=== PATIENT | female | born 1940 | race Caucasian/White ===

== ENCOUNTER 2024-02-15 19:51 | Inpatient (IN) | payer MEDICARE, SELFPAY ==
[2024-02-15] VITALS (7 sets, daily range): BP systolic 150–175; BP diastolic 49–97; PULSE 84–102; RESP 16–18; TEMP 36.8–38.8; O2SAT 94–98; BMI 21.0
--- NOTE | 2024-02-15 20:56 | EDS_ITS ---
HPI History of Present Illness Chief Complaint: Cellulitis Informant: patient and family Narrative Narrative: 83-year-old female with no significant medical problems presenting to the emergency department with a chief complaint of leg infection. Patient notes ace t she sustained an injury to the lower left leg de santiago about 6 weeks ago when she fell going up the stairs. This resulted in skin tear. She had been doing well until the last few days when the leg has become swollen red and painful. Family notes increased fatigue. They note drainage from the wound. Difficult to assess her level of fatigue because today she apparently went out to pick tomatoes and then canned tomato juice of about 6 jars. This would require significant effort. When asked about this the patient states that she feels better when she is up on the leg than when she is elevating it. She has not noted any fever. She does not have any complaints above the knee. No history of DVT PE. Patient has had prior strep infection of the left arm in the past but no known abscesses or MRSA. Patient has not been on any recent antibiotics. Family has been using antibiotic ointment several times a day to the wound. It has not had a chance to dry out. PFSH PFSH Allergy/AdvReac Type Severity Reaction Status Date / Time No Known Allergies Allergy Verified 02/15/24 19:53 Social History Smoking Status: Never smoker ROS ROS ED Constitutional Constitutional ED: Denies chills, fever(s) or weight loss Eyes Eyes: Denies change in vision or diplopia ENT ENT ED: Denies ear pain, rhinorrhea or sore throat Cardiovascular Cardiovascular: Denies chest pain, orthopnea, palpitations or racing heartbeat Respiratory/Chest Respiratory/Chest: Denies cough, dyspnea or orthopnea Gastrointestinal Gastrointestinal: Denies abdominal pain, diarrhea, nausea or vomiting Genitourinary Genitourinary ED: Denies dysuria, hematuria or urinary frequency Musculoskeletal Musculoskeletal: Denies arthralgias or myalgias Integumentary Reports Abrasions, rash and other Details: See history of present illness ; Denies abscess Neurologic Neurologic: Denies headache(s) or weakness Psychiatric Psychiatric: Denies anxiety, depression, suicidal ideation or suicidal thoughts Endocrine Endocrinology: Denies polydipsia, polyphagia or polyuria Allergic/Immunologic Allergic/Immunologic ED: Denies mouth swelling, tongue swelling or urticaria EXAM Physical Exam Const Vital Signs: 02/15/24 19:53 02/15/24 20:56 02/15/24 21:00 Temperature 98.3 F 100.0 F H 100.0 F H Temperature Source Temporal Oral Oral Pulse Rate 102 H 95 84 Respiratory Rate 16 18 18 Blood Pressure 161/92 H 161/71 H 175/80 H Blood Pressure Mean 115 101 111 Pulse Ox 96 98 94 Oxygen Delivery Method Room Air Room Air Room Air 02/15/24 22:00 02/15/24 22:44 Temperature 100.0 F H 101.8 F H Temperature Source Oral Oral Pulse Rate 84 Respiratory Rate 18 Blood Pressure 162/49 H Blood Pressure Mean 86 Pulse Ox Oxygen Delivery Method Positive well nourished and well developed General Appearance ED: well developed HEENT Reports normocephalic, head/scalp atraumatic and moist mucous membranes Eyes PERRL and EOMs intact bilaterally Neck no lymphadenopathy, supple and no JVD Resp normal respiratory effort and clear to auscultation bilaterally Cardio regular rate, regular rhythm and no murmurs GI normal to inspection, nondistended, normoactive bowel sounds and non-tender Palpation: soft Back/Spine no CVA tenderness and normal ROM Extremity Extremity Narrative: The left lower leg demonstrates a 2 x 4 cm area of skin avulsion with some granulation tissue. The lower extremity is very warm to the touch. There is swelling of the foot up to about the mid to proximal leg. There is erythema of the foot leg particularly medially and proximally. No lymphangitic streaking. The calf is nontender. The edges of the skin avulsion appear white and there is some weeping from the tissue. Neuro oriented x3 and CN's II-XII intact bilaterally Sensorium / Orientation: alert Motor Exam: strength 5/5 throughout Psych mental status grossly normal Mood & Affect: Negative for depressed or tearful Skin no rashes or lesions noted and no wounds MDM MDM MDM Narrative Medical decision making narrative: Differential diagnosis includes but not limited to cellulitis bacteremia sepsis DVT White count 8.6 with 77.2 neutrophils hemoglobin 14.6 platelet count of 214. Lactic acid is normal creatinine 1.10 BUN of 20 normal electrolytes AST is 53. Duplex ultrasound was obtained is negative for DVT Blood cultures were obtained and the patient received a dose of Ancef. While here in the emergency department the patient became febrile. She has progressively become more weak and now is unable to ambulate to the bathroom without assistance. She is now febrile at 101.7. I will give her Tylenol as well as some IV fluids. I will speak with the hospitalist regarding admission History & Record Review Discussion w/independent historian: Patient and Family Lab Data Attestation: I reviewed the patient's lab results. Labs: Laboratory Results - last 24 hr 02/15/24 21:29 WBC 8.6 RBC 5.00 Hgb 14.6 Hct 43.7 MCV 87.4 MCH 29.2 MCHC 33.4 RDW Std Deviation 44.5 H RDW Coeff of Yajaira 13.9 Plt Count 214 MPV 9.0 Immature Gran % (Auto) 0.900 Neut % (Auto) 77.2 H Lymph % (Auto) 14.5 L [place] % (Auto) 7.3 Eos % (Auto) 0.0 Baso % (Auto) 0.1 Absolute Neuts (auto) 6.6 Absolute Lymphs (auto) 1.25 Nucleated RBC % 0 PT 14.0 INR 1.1 APTT 28.7 Sodium 136 Potassium 4.0 Chloride 100 Carbon Dioxide 27.0 Anion Gap 9 BUN 20 H Creatinine 1.10 H Estim Creat Clear Calc 29.24 Est GFR (MDRD) Af Amer 61 Est GFR (MDRD) Non-Af 50 L BUN/Creatinine Ratio 18.2 Glucose 97 Lactic Acid 0.9 Calcium 9.6 Total Bilirubin 0.70 Direct Bilirubin 0.16 AST 53 H ALT 39 Alkaline Phosphatase 95 Total Protein 7.9 Albumin 4.2 Globulin 3.7 Management Discussion w/another healthcare provider: Hospitalist Discharge Plan Triage Chief Complaint: Cellulitis ED Provider: Anthony Blackmon Dx/Rx/DC Orders Clinical Impression: Cellulitis of left lower leg Primary Care Provider: Care Physician,No Primary Referrals: Care Physician,No Primary [Primary Care Provider] - Print Language: Vietnamese
[2024-02-15 21:36] LABS: Absolute Lymphocyte Count 1.25 X10^3/uL (0.83-4.51); Absolute Neutrophil Count 6.6 X10^3/uL (2.0-7.7); Basophil# 0.01 X10^3/uL; Basophil% 0.1 % (0-1); Hematocrit 43.7 % (37-47); Hemoglobin 14.6 g/dL (12.0-15.0); Lymphocyte # 1.25 X10^3/ul (0.83-4.51); Lymphocyte % 14.5 % (19-41); Mean Corp Hgb Conc 33.4 g/dL (32-36); Mean Corpuscular Hgb 29.2 pg (27.0-32.0); Mean Corpuscular Volume 87.4 fL (81-99); Monocyte# 0.63 X10^3/uL; Monocyte% 7.3 % (0-10); NRBC Flagged by Analyzer 0 % (0-5); Neutrophil # 6.64 X10^3/uL (2.7-7.7); Neutrophil % 77.2 % (47-70); Platelet Count 214 K/mm3 (150-450); RBC Distribution Width CV 13.9 % (11.6-14.6); RBC Distribution Width SD 44.5 fl (35.1-43.9); White Blood Count 8.6 K/mm3 (4.4-11.0)
--- NOTE | 2024-02-15 21:37 | US_ITS ---
INDICATION: lt leg redness/ swelling x 6 weeks EXAMINATION: Ultrasound US Venous Duplex LE Unilat / Limited TECHNIQUE: Warner scale, pulse wave, and color flow Doppler imaging was performed of the lower extremity venous system. The bilateral greater saphenous, common femoral, femoral, and popliteal veins were interrogated. COMPARISON: No relevant prior comparison study available FINDINGS: There is normal compression, augmentation, and signal throughout the visualized deep lower extremity veins. Enlarged left inguinal lymph node measures 2.9 x 2.9 x 1.2 cm. US/Venous Duplex Imag/Limited/Uni IMPRESSION: No sonographic evidence of deep venous thrombosis. Electronically Signed: Estella Mas MD at 23:44 EDT ,
[2024-02-15 21:46] LABS: International Normalized Ratio 1.1; Partial Thromboplast Time 28.7 Seconds (24.1-36.2)
[2024-02-15] MEDS: Cefazolin 1 GM/50 ML BAG IV (21:50)
[2024-02-15 21:52] LABS: AST(SGOT) 53 U/L (15-37); Alanine Aminotransfer ALT/SGPT 39 U/L (13-56); Albumin, Serum 4.2 g/dL (3.2-5.0); Alkaline Phosphatase 95 U/L (45-117); Anion Gap 9 (5-15); BUN 20 mg/dL (7-18); BUN/Creat Ratio 18.2 RATIO (10-20); Bilirubin, Direct 0.16 mg/dL (0.00-0.30); Calcium,Total 9.6 mg/dL (8.5-10.1); Chloride 100 mmol/L (98-107); EST Glomerular Filtration Rate 50 mL/min (>60); Est Glom Filt Rate - Afr Amer 61 mL/min (>60); Estimated Creatinine Clearance 29.24 ml/min; Globulin 3.7 g/dL (2.2-4.2); Glucose 97 mg/dL (74-106); Protein, Total 7.9 g/dL (6.4-8.2); Sodium Level 136 mmol/L (136-145)
[2024-02-15 21:59] LABS: Lactic Acid 0.9 mmol/L (0.4-1.9)
--- NOTE | 2024-02-15 23:01 | PCM.HP.STD ---
HPI - General General Date of Admission: 02/15/24 Date of Service: 02/15/24 Chief Complaint: Fever, Confusion and LLE Redness and Swelling. HPI Narrative AYO JONES, is a 83 F with a past medical history of sustaining an injury to her Left de santiago ~6 weeks ago when she fell while trying to walk up her stairs with a resultant skin tear who presents to [facility] ER complaining of fever, confusion and LLE redness and swelling. Mary Jo Jones is not a fully-reliable historian at this time so information was gathered from chart, medical staff and computer. According to the records her symptoms began approximately 2-3 days prior to admission when the area surrounding her Left de santiago skin tear sustained approximately 6 weeks ago suddenly began to become increasingly red, swollen and painful. She also admits to increasing drainage from the wound along with worsening fatigue and intermittent confusion that is worse during her fevers with patient spiking a temperature to 101 degrees Fahrenheit in the ER. She admits to a previous Streptococcal infection of the Left arm requiring surgical debridement and Wound Vac placement a few years ago but she denies a history of abscess or MRSA. She also denies a history of VTE, chills, nausea, vomiting, diarrhea, constipation, abdominal pain, chest pain or SOB. In the ER she was diagnosed with LLE Cellulitis complicated by clinical evidence of metabolic encephalopathy and she was then admitted to the general medical floor for ongoing care for a stay that is expected to extend beyond 2 midnights. PFSH Home Medications ?Medication ?Instructions ?Recorded ?Last Taken ?Type NK 02/15/24 Unknown History Allergy/AdvReac Type Severity Reaction Status Date / Time No Known Allergies Allergy Verified 02/15/24 19:53 Social History Smoking Status: Never smoker ROS ROS Narrative Review of systems: General: Patient denies fever, chills or weight loss. HENT: Denies headache, denies stuffy nose, denies sore throat EYES: Denies changes in vision or discharge from eyes. Resp: Denies cough, denies shortness of breath Cardiac: Denies chest pain, palpitations or heart racing. GI: Denies abdominal pain, denies changes in bowel, denies nausea or vomiting. : Denies changes in urination Extremity: Denies swelling Musculoskeletal: Feels somewhat generally weak and unwell Neuro: Denies any numbness/tingling Heme: Denies any bleeding or bruising Skin: Patient reports abrasion and rash. Psychiatric: No complaints voiced related uncontrolled depression or anxiety Endocrine: No polyuria, polydipsia or polyphagia. The rest of the 14 point ROS was negative except for positives in HPI. Vital Signs Vital Signs Vital Signs: 02/15/24 19:53 02/15/24 20:56 02/15/24 21:00 Temperature 98.3 F 100.0 F H 100.0 F H Temperature Source Temporal Oral Oral Pulse Rate 102 H 95 84 Respiratory Rate 16 18 18 Blood Pressure 161/92 H 161/71 H 175/80 H Blood Pressure Mean 115 101 111 Pulse Ox 96 98 94 Oxygen Delivery Method Room Air Room Air Room Air 02/15/24 22:00 02/15/24 22:44 Temperature 100.0 F H 101.8 F H Temperature Source Oral Oral Pulse Rate 84 Respiratory Rate 18 Blood Pressure 162/49 H Blood Pressure Mean 86 Pulse Ox Oxygen Delivery Method Weight Weight: 111 lb 6.4 oz Body Mass Index (BMI) 21.0 Physical Exam Const alert, oriented x3, no apparent distress and average body habitus General Appearance: cooperative HEENT normocephalic, head/scalp atraumatic, hearing grossly normal bilaterally and moist oral mucous membranes Eyes PERRL and EOMs intact bilaterally Neck no lymphadenopathy and supple Resp normal respiratory effort, no retractions, no use of accessory muscles and clear to auscultation bilaterally Cardio regular rate and regular rhythm GI normal to inspection, nondistended, normoactive bowel sounds, soft to palpation, non-tender and non-distended Extremity Extremity Narrative: Severe LLE wound with surrounding erythema. Skin Skin Narrative: Severe LLE wound with surrounding erythema. Neuro oriented x3, CN's II-XII intact bilaterally, moves all extremities and no focal motor deficits Sensorium / Orientation: awake, alert, oriented to person and oriented to place Speech: speech normal Psych affect normal Results Medical Records Data Attestation: I reviewed the patient's medical records Lab / Micro Data Attestation: I reviewed the patient's lab results. 02/15/24 21:29 02/15/24 21:29 Labs: Laboratory Results - last 24 hr 02/15/24 21:29: WBC 8.6, RBC 5.00, Hgb 14.6, Hct 43.7, MCV 87.4, MCH 29.2, MCHC 33.4, RDW Std Deviation 44.5 H, RDW Coeff of Yajaira 13.9, Plt Count 214, MPV 9.0, Immature Gran % (Auto) 0.900, Neut % (Auto) 77.2 H, Lymph % (Auto) 14.5 L, [place] % (Auto) 7.3, Eos % (Auto) 0.0, Baso % (Auto) 0.1, Absolute Neuts (auto) 6.6, Absolute Lymphs (auto) 1.25, Nucleated RBC % 0, PT 14.0, INR 1.1, APTT 28.7, Sodium 136, Potassium 4.0, Chloride 100, Carbon Dioxide 27.0, Anion Gap 9, BUN 20 H, Creatinine 1.10 H, Estim Creat Clear Calc 29.24, Est GFR (MDRD) Af Amer 61, Est GFR (MDRD) Non-Af 50 L, BUN/Creatinine Ratio 18.2, Glucose 97, Lactic Acid 0.9, Calcium 9.6, Total Bilirubin 0.70, Direct Bilirubin 0.16, AST 53 H, ALT 39, Alkaline Phosphatase 95, Total Protein 7.9, Albumin 4.2, Globulin 3.7 Assessment & Plan Assessment/Plan (1) Cellulitis of left lower leg: (2) Acute febrile illness: (3) Metabolic encephalopathy: PLAN: Plan 1. LLE Cellulitis in the setting of a Chronic LLE Wound - Admit to general medical floor. Continue IV Vancomycin and give IV Zosyn for a likely polymicrobial infection in her chronic LLE wound and await culture and sensitivity data. Give Tylenol prn [id number] (level 1-5/10) pain or fever. Give Percocet prn for severe (level 6-10/10) pain. 2. Metabolic Encephalopathy arising from #1 - Resume supportive care and monitor for improvement. Check TSH. 3. DVT prophylaxis - Lovenox 40 mg sq daily. Total time: Approximately 40 minutes. Charges/Coding Visit Charges Inpatient E&M: 72348 Init Hosp L1
[2024-02-15] MEDS: 0.9% Normal Saline (500mL Bag) 500 ML 999 ML IV (23:06)
[2024-02-15] MEDS: Acetaminophen 500 MG Tablet 1000 MG PO (23:06)
[2024-02-15] MEDS: Vancomycin HCl 1,250 MG in 0.9% Normal Saline (250mL Bag) 250 ML 167 MG IV (23:29)
[2024-02-15] MEDS: 0.9% Normal Saline (1000mL) 1,000 ML 200 ML IV (23:30)
[2024-02-16 00:31] VITALS: BMI 20.9
--- NOTE | 2024-02-16 00:45 | PCM.RX.CS ---
Consult Antibiotic Management Pharmacy has been consulted to manage selected antibiotic: Vancomycin Type of Intervention Type of Consult: New start Suspected Infection Suspected Infection: Skin/Soft tissue Labs Labs: Sodium 136 mmol/L (136-145) 02/15/24 21:29 Potassium 4.0 mmol/L (3.5-5.1) 02/15/24 21:29 Chloride 100 mmol/L (98-107) 02/15/24 21:29 Carbon Dioxide 27.0 mmol/L (21.0-32.0) 02/15/24 21:29 Anion Gap 9 (5-15) 02/15/24 21:29 BUN 20 mg/dL (7-18) H 02/15/24 21:29 Creatinine 1.10 mg/dL (0.55-1.02) H 02/15/24 21:29 Est GFR (MDRD) Af Amer 61 mL/min (>60) 02/15/24 21:29 Est GFR (MDRD) Non-Af 50 mL/min (>60) L 02/15/24 21:29 BUN/Creatinine Ratio 18.2 RATIO (10-20) 02/15/24 21:29 Glucose 97 mg/dL (74-106) 02/15/24 21:29 Dosing Weight Weight used for dosin.3 kg Estimated Creatinine Clearance Estimated Creatinine Clearance: 29 Goal Trough Goal Trough: 15-20 mcg/mL Pharmacy Plan for Drug Dosing Pharmacy Plan for Drug Dosing: Pharmacy Service will continue to monitor and adjust dosing as required. Follow-Up Labs Follow-Up Labs: Trough: Vancomycin Date/Time Labs Ordered Labs to be done on [date and time ordered]: 02/17/24 @2300
[2024-02-16 00:48] VITALS: BP 129/66; PULSE 84; RESP 16; TEMP 36.9; O2SAT 96
[2024-02-16 05:17] VITALS: BMI 21.1
[2024-02-16 05:19] VITALS: BP 116/54; PULSE 68; RESP 16; TEMP 36.6; O2SAT 99
[2024-02-16 06:20] LABS: Absolute Neutrophil Count 6.2 X10^3/uL (2.0-7.7); Basophil# 0.02 X10^3/uL; Basophil% 0.2 % (0-1); Hematocrit 35.5 % (37-47); Hemoglobin 11.6 g/dL (12.0-15.0); Lymphocyte % 15.5 % (19-41); Mean Corp Hgb Conc 32.7 g/dL (32-36); Mean Corpuscular Volume 88.8 fL (81-99); Mean Platelet Vol. 9.4 fl (6.2-12.0); Monocyte# 0.75 X10^3/uL; Monocyte% 8.9 % (0-10); NRBC Flagged by Analyzer 0 % (0-5); Neutrophil # 6.21 X10^3/uL (2.7-7.7); Neutrophil % 73.9 % (47-70); Platelet Count 172 K/mm3 (150-450); RBC Distribution Width SD 45.6 fl (35.1-43.9); White Blood Count 8.4 K/mm3 (4.4-11.0)
[2024-02-16 07:04] LABS: AST(SGOT) 43 U/L (15-37); Alanine Aminotransfer ALT/SGPT 29 U/L (13-56); Albumin, Serum 2.9 g/dL (3.2-5.0); Alkaline Phosphatase 67 U/L (45-117); Anion Gap 6 (5-15); BUN 18 mg/dL (7-18); BUN/Creat Ratio 18.5 RATIO (10-20); Calcium,Total 8.3 mg/dL (8.5-10.1); Chloride 107 mmol/L (98-107); Creatinine, Serum 0.97 mg/dL (0.55-1.02); EST Glomerular Filtration Rate 58 mL/min (>60); Est Glom Filt Rate - Afr Amer 70 mL/min (>60); Estimated Creatinine Clearance 33.16 ml/min; Globulin 2.9 g/dL (2.2-4.2); Glucose 107 mg/dL (74-106); Magnesium 2.1 mg/dL (1.6-2.6); Potassium 3.6 mmol/L (3.5-5.1); Protein, Total 5.8 g/dL (6.4-8.2); Sodium Level 138 mmol/L (136-145)
[2024-02-16 08:41] VITALS: BP 128/79; PULSE 70; RESP 18; TEMP 36.9; O2SAT 98
[2024-02-16] MEDS: Cholecalciferol (Vit D3) 125 MCG CAPSULE (5,000 UNITS) PO (08:53)
[2024-02-16] MEDS: Ascorbic Acid 500 MG Tablet 1000 MG PO ×2 (08:53→17:42)
[2024-02-16] MEDS: Enoxaparin 30 MG/0.3 ML Syringe SC (08:53)
[2024-02-16] MEDS: Zinc Sulfate 50 mg zinc (220 mg) ORAL capsule PO (08:53)
[2024-02-16] MEDS: Lactobacillis Acidophilus 1 CAP PO ×4 (08:53→21:43)
[2024-02-16] MEDS: Ensure Plus High Protein 120 ML LIQUID PO ×4 (09:54→21:45)
[2024-02-16] MEDS: Cefazolin 1 GM/50 ML BAG IV ×2 (09:54→21:43)
[2024-02-16 10:54] VITALS: O2SAT 96
--- NOTE | 2024-02-16 13:19 | PN.HOSP_ITS ---
Reason for Visit Reason for Visit: Diagnoses Metabolic encephalopathy (02/15/24) Cellulitis of left lower limb (02/15/24) Fever, unspecified (02/15/24) Subjective Subjective Patient improving since yesterday, not having much pain in the leg, no other new or acute complaints Objective Data Objective Data Vital Signs: Vital Signs Temp Pulse Resp BP Pulse Ox O2 Del Method 98.5 F 70 18 128/79 H 96 Room Air 02/16/24 08:41 02/16/24 08:41 02/16/24 08:41 02/16/24 08:41 02/16/24 10:54 02/16/24 10:54 Oxygen Delivery Method Room Air Weight: 50.7 kg Body Mass Index (BMI) 21.1 Intake & Output: Intake and Output for Last 24 Hours 02/14/24 02/15/24 02/16/24 23:59 23:59 23:59 Intake Total 550 / 550 945 / 945 Balance 550 / 550 945 / 945 Lab / Micro Data 02/16/24 05:15 02/16/24 05:15 Labs: Laboratory Results - last 24 hr 02/15/24 21:29: WBC 8.6, RBC 5.00, Hgb 14.6, Hct 43.7, MCV 87.4, MCH 29.2, MCHC 33.4, RDW Std Deviation 44.5 H, RDW Coeff of Yajaira 13.9, Plt Count 214, MPV 9.0, Immature Gran % (Auto) 0.900, Neut % (Auto) 77.2 H, Lymph % (Auto) 14.5 L, [place] % (Auto) 7.3, Eos % (Auto) 0.0, Baso % (Auto) 0.1, Absolute Neuts (auto) 6.6, Absolute Lymphs (auto) 1.25, Nucleated RBC % 0, PT 14.0, INR 1.1, APTT 28.7, Sodium 136, Potassium 4.0, Chloride 100, Carbon Dioxide 27.0, Anion Gap 9, BUN 20 H, Creatinine 1.10 H, Estim Creat Clear Calc 29.24, Est GFR (MDRD) Af Amer 61, Est GFR (MDRD) Non-Af 50 L, BUN/Creatinine Ratio 18.2, Glucose 97, Lactic Acid 0.9, Calcium 9.6, Total Bilirubin 0.70, Direct Bilirubin 0.16, AST 53 H, ALT 39, Alkaline Phosphatase 95, Total Protein 7.9, Albumin 4.2, Globulin 3.7, TSH 1.220 02/16/24 05:15: WBC 8.4, RBC 4.00 L, Hgb 11.6 L, Hct 35.5 L, MCV 88.8, MCH 29.0, MCHC 32.7, RDW Std Deviation 45.6 H, RDW Coeff of Yajaira 14.0, Plt Count 172, MPV 9.4, Immature Gran % (Auto) 1.500 H, Neut % (Auto) 73.9 H, Lymph % (Auto) 15.5 L , [place] % (Auto) 8.9, Eos % (Auto) 0.0, Baso % (Auto) 0.2, Absolute Neuts (auto) 6.2, Absolute Lymphs (auto) 1.30, Nucleated RBC % 0, Sodium 138, Potassium 3.6, Chloride 107, Carbon Dioxide 25.0, Anion Gap 6, BUN 18, Creatinine 0.97, Estim Creat Clear Calc 33.16, Est GFR (MDRD) Af Amer 70, Est GFR (MDRD) Non-Af 58 L, BUN/Creatinine Ratio 18.5, Glucose 107 H, Calcium 8.3 L, Phosphorus 4.0, Magnesium 2.1, Total Bilirubin 0.60, AST 43 H, ALT 29, Alkaline Phosphatase 67, Total Protein 5.8 L, Albumin 2.9 L, Globulin 2.9, Albumin/Globulin Ratio 1.0 Micro: Microbiology 02/15/24 21:54 Wound - Leg, Left Wound Culture - Preliminary Mixed Gram Pos & Gram Neg Org Radiography Diagnostic Testing: Radiology Impression Venous Duplex 02/15/24 21:37 IMPRESSION: No sonographic evidence of deep venous thrombosis. Electronically Signed: Estella Mas MD at 23:44 EDT , Physical Exam Narrative General: Alert, oriented, no apparent distress HEENT: Atraumatic, normocephalic Eyes: Anicteric, normal conjunctiva, extraocular movements grossly intact Neck: Supple Respiratory: Clear to auscultation bilaterally, normal respiratory effort Cardiovascular: Regular rate GI: Soft, nontender, nondistended Extremities: No edema Musculoskeletal: Moving all extremities Neuro: No overt focal neurological deficits Skin: Left leg with left lower extremity wound with some surrounding erythema and no drainage Psych: Cooperative Assessment & Plan Assessment/Plan (1) Cellulitis of left lower leg: (2) Acute febrile illness: PLAN: Plan # Left lower extremity cellulitis and fever -Patient with left lower extremity wound and temperature of 101.8 -There was concern for polymicrobial infection so this was cultured and patient was started on IV vancomycin and cefazolin -Her fever resolved on preliminary wound culture with mixed gram-positive and gram-negative organisms -Final culture pending -Blood culture no growth to date -Continue broad-spectrum antibiotics and narrow spectrum based on culture results -Local wound care -Left lower extremity duplex on admission showed no DVT #DVT ppx: Lovenox subcu Ro Giles MD Charges/Coding Visit Charges Inpatient E&M: 96980 Subs Hosp L1
--- NOTE | 2024-02-16 13:30 | CASEMGMT ---
LIZET DOUGHERTY Assessment: Face to Face with pt for initial transition planning/care coordination assessment. LIZET DOUGHERTY introduced self and role at [facility], pt voices understanding and consents to assessment. Pt is A&O x4 and answers all questions appropriately at this time. Pt sitting up in chair in no distress. Care providers, pharmacy, and demographics verified/updated. Strata: 1 Admitting Dx: LLE Cellulitis and metabolic encephalopathy. PCP: No PCP, provided list of local physicians Specialists: Denies Preferred Pharmacy: [facility] Insurance: [facility] Prescription Benefit: yes LNOK: Son Living Arrangements: Pt lives with son in a 1 story home with 2 steps to enter. ADLs: Pt reports I with ADLs and IADLs. Transportation: Pt drives self and denies concerns with transportation. DME: Wheeled walker, grab bars HHC/SNF: Denies Hx of SNF, reports used HHC agency previously but does not recall what agency it was. Pt states no concerns with going home at time of dc. Pt states no further concerns/needs. CM to follow. Advised pt to ask CM if any further question/concerns/needs arise, voices understanding. Pt Goal: Home Plan: Home, follow plan of care. Xi HINDS CM
--- NOTE | 2024-02-16 13:53 | CASEMGMT ---
LIZET DOUGHERTY Assessment: Face to Face with pt for initial transition planning/care coordination assessment. RN LADONNA introduced self and role at [facility], pt voices understanding and consents to assessment. Pt is A&O x4 and answers all questions appropriately at this time. Pt sitting up in chair in no distress. Care providers, pharmacy, and demographics verified/updated. Strata: 1 Admitting Dx: LLE Cellulitis and metabolic encephalopathy. PCP: No PCP, provided list of local physicians Specialists: Denies [facility] Prescription Benefit: yes LNOK: S9 Living Arrangements: Pt lives ADLs: Transportation: Pt drives self and denies concerns with transportation. DME: HHC/SNF: Pt states no concerns with going home at time of dc. Pt states no further concerns/needs. CM to follow. Advised pt to ask CM if any further question/concerns/needs arise, voices understanding. Pt Goal: Plan: Xi HINDS CM
[2024-02-16 14:00] VITALS: BP 121/63; PULSE 70; RESP 18; TEMP 37.2; O2SAT 98
[2024-02-16] MEDS: 0.9% Normal Saline (1000mL) 1,000 ML 70 ML IV (14:20)
[2024-02-16] MEDS: 0.9% Saline Lock 10 ML Syringe IV (17:45)
[2024-02-16] MEDS: Vancomycin IV 500 MG/100 ML BAG 100 MG IV (23:15)
[2024-02-17 05:56] VITALS: BMI 21.4
[2024-02-17 06:27] LABS: Absolute Neutrophil Count 3.4 X10^3/uL (2.0-7.7); Basophil# 0.01 X10^3/uL; Basophil% 0.2 % (0-1); Eosinophil# 0.03 X10^3/uL; Eosinophils% 0.5 % (0-5); Hematocrit 34.3 % (37-47); Hemoglobin 11.4 g/dL (12.0-15.0); Lymphocyte % 27.4 % (19-41); Mean Corp Hgb Conc 33.2 g/dL (32-36); Mean Corpuscular Hgb 29.2 pg (27.0-32.0); Mean Corpuscular Volume 87.9 fL (81-99); Mean Platelet Vol. 9.3 fl (6.2-12.0); Monocyte# 0.73 X10^3/uL; Monocyte% 12.5 % (0-10); NRBC Flagged by Analyzer 0 % (0-5); Neutrophil # 3.42 X10^3/uL (2.7-7.7); Neutrophil % 58.7 % (47-70); Platelet Count 167 K/mm3 (150-450); RBC Distribution Width CV 14.1 % (11.6-14.6); RBC Distribution Width SD 45.5 fl (35.1-43.9); White Blood Count 5.8 K/mm3 (4.4-11.0)
[2024-02-17 06:55] LABS: Anion Gap 6 (5-15); BUN 15 mg/dL (7-18); BUN/Creat Ratio 20.2 RATIO (10-20); Calcium,Total 8.1 mg/dL (8.5-10.1); Chloride 110 mmol/L (98-107); Creatinine, Serum 0.74 mg/dL (0.55-1.02); EST Glomerular Filtration Rate 79 mL/min (>60); Est Glom Filt Rate - Afr Amer 96 mL/min (>60); Estimated Creatinine Clearance 40.21 ml/min; Glucose 96 mg/dL (74-106); Potassium 3.5 mmol/L (3.5-5.1); Sodium Level 141 mmol/L (136-145)
[2024-02-17 07:57] VITALS: BP 125/60; PULSE 65; RESP 16; TEMP 36.4; O2SAT 92
[2024-02-17] MEDS: Ascorbic Acid 500 MG Tablet 1000 MG PO ×2 (08:09→18:20)
[2024-02-17] MEDS: Lactobacillis Acidophilus 1 CAP PO ×4 (08:10→20:20)
[2024-02-17] MEDS: Cholecalciferol (Vit D3) 125 MCG CAPSULE (5,000 UNITS) PO (10:01)
[2024-02-17] MEDS: Zinc Sulfate 50 mg zinc (220 mg) ORAL capsule PO (10:01)
[2024-02-17 11:23] VITALS: O2SAT 96
--- NOTE | 2024-02-17 12:18 | PCM.PN.HOSP ---
Reason for Visit Reason for Visit: Diagnoses Metabolic encephalopathy (02/15/24) Cellulitis of left lower limb (02/15/24) Fever, unspecified (02/15/24) Subjective Subjective Patient still has erythema in her left leg, slightly improved today, no other focal complaints Objective Data Objective Data Vital Signs: Vital Signs Temp Pulse Resp BP Pulse Ox O2 Del Method 97.6 F L 65 16 125/60 H 96 Room Air 02/17/24 07:57 02/17/24 07:57 02/17/24 07:57 02/17/24 07:57 02/17/24 11:23 02/17/24 11:23 Oxygen Delivery Method Room Air Weight: 51.4 kg Body Mass Index (BMI) 21.4 Intake & Output: Intake and Output for Last 24 Hours 02/15/24 02/16/24 02/17/24 23:59 23:59 23:59 Intake Total 550 / 550 1405.33 / 1405.33 370 / 370 Balance 550 / 550 1405.33 / 1405.33 370 / 370 Lab / Micro Data 02/17/24 05:19 02/17/24 05:19 Labs: Laboratory Results - last 24 hr 02/17/24 05:19: WBC 5.8, RBC 3.90 L, Hgb 11.4 L, Hct 34.3 L, MCV 87.9, MCH 29.2, MCHC 33.2, RDW Std Deviation 45.5 H, RDW Coeff of Yajaira 14.1, Plt Count 167, MPV 9.3, Immature Gran % (Auto) 0.700, Neut % (Auto) 58.7, Lymph % (Auto) 27.4, [place] % (Auto) 12.5 H, Eos % (Auto) 0.5, Baso % (Auto) 0.2, Absolute Neuts (auto) 3.4, Absolute Lymphs (auto) 1.60, Nucleated RBC % 0, Sodium 141, Potassium 3.5, Chloride 110 H, Carbon Dioxide 25.0, Anion Gap 6, BUN 15, Creatinine 0.74, Estim Creat Clear Calc 40.21, Est GFR (MDRD) Af Amer 96, Est GFR (MDRD) Non-Af 79, BUN/Creatinine Ratio 20.2 H, Glucose 96, Calcium 8.1 L Micro: Microbiology 02/15/24 21:54 Wound - Leg, Left Gram Stain - Final 02/15/24 21:54 Wound - Leg, Left Wound Culture - Preliminary Mixed Gram Pos & Gram Neg Org Physical Exam Narrative General: Alert, oriented, no apparent distress HEENT: Atraumatic, normocephalic Eyes: Anicteric, normal conjunctiva, extraocular movements grossly intact Neck: Supple Respiratory: Clear to auscultation bilaterally, normal respiratory effort Cardiovascular: Regular rate GI: Soft, nontender, nondistended Extremities: No edema Musculoskeletal: Moving all extremities Neuro: No overt focal neurological deficits Skin: Left leg with left lower extremity wound with some surrounding erythema and no drainage, similar to yesterday Psych: Cooperative Assessment & Plan Assessment/Plan (1) Cellulitis of left lower leg: (2) Acute febrile illness: PLAN: Plan # Left lower extremity cellulitis and fever -Patient with left lower extremity wound and temperature of 101.8 -There was concern for polymicrobial infection so this was cultured and patient was started on IV vancomycin and cefazolin -Her fever resolved on preliminary wound culture with mixed gram-positive and gram-negative organisms -Final culture pending -Blood culture no growth to date -Continue broad-spectrum antibiotics and narrow spectrum based on culture results -Local wound care -Left lower extremity duplex on admission showed no DVT -02/16: Left lower extremity still with erythema, preliminary culture with mixed organisms, no sensitivities back and given some improvement and unclear organisms will continue current IV antibiotics, consult infectious disease given concerns for polymicrobial wound with slow response #DVT ppx: Lovenox subcu Ro Giles MD Charges/Coding Visit Charges Inpatient E&M: 93366 [facility] Hosp L1
[2024-02-17 15:00] VITALS: BP 138/86; PULSE 74; RESP 18; TEMP 36.9; O2SAT 98
[2024-02-17] MEDS: Piperacil/Tazobactam 3.375 GM in 0.9% Normal Saline (50mL MB+) 50 ML IV ×2 (15:08→20:22)
[2024-02-17] MEDS: Ensure Plus High Protein 120 ML LIQUID PO ×2 (15:17→18:19)
[2024-02-17 20:29] VITALS: BP 146/87; PULSE 77; RESP 16; TEMP 36.7; O2SAT 97
[2024-02-17 23:33] LABS: Vancomycin, Trough Level 4.1 ug/mL (5.0-15.0)
--- NOTE | 2024-02-17 23:50 | PCM.RX.CS ---
Consult Antibiotic Management Pharmacy has been consulted to manage selected antibiotic: Vancomycin Type of Intervention Type of Consult: Follow-up Suspected Infection Suspected Infection: Skin/Soft tissue Labs Labs: Sodium 141 mmol/L (136-145) 02/17/24 05:19 Potassium 3.5 mmol/L (3.5-5.1) 02/17/24 05:19 Chloride 110 mmol/L (98-107) H 02/17/24 05:19 Carbon Dioxide 25.0 mmol/L (21.0-32.0) 02/17/24 05:19 Anion Gap 6 (5-15) 02/17/24 05:19 BUN 15 mg/dL (7-18) 02/17/24 05:19 Creatinine 0.74 mg/dL (0.55-1.02) 02/17/24 05:19 Est GFR (MDRD) Af Amer 96 mL/min (>60) 02/17/24 05:19 Est GFR (MDRD) Non-Af 79 mL/min (>60) 02/17/24 05:19 BUN/Creatinine Ratio 20.2 RATIO (10-20) H 02/17/24 05:19 Glucose 96 mg/dL (74-106) 02/17/24 05:19 Vancomycin Trough 4.1 ug/mL (5.0-15.0) L 02/17/24 23:00 Microbiology Microbiology: Microbiology 02/15/24 21:54 Wound - Leg, Left Gram Stain - Final 02/15/24 21:54 Wound - Leg, Left Wound Culture - Preliminary GNR lactose fertilizer applicator Streptococcus group B Streptococcus group C Dosing Weight Weight used for dosin.4 kg Estimated Creatinine Clearance Estimated Creatinine Clearance: 40 Goal Trough Goal Trough: 15-20 mcg/mL Pharmacy Plan for Drug Dosing Pharmacy Plan for Drug Dosing: Vancomycin trough level of 4.1, drawn 23.75hrs post-dose, was below the target range of 15-20. This is owing partly to the improvement in renal function (SCr from 1.10 to 0.74). Will increase dosing to 1500mg q24h, and will draw another trough prior to the third dose of the new regimen. Pharmacy Service will continue to monitor and adjust dosing as required. Follow-Up Labs Follow-Up Labs: Trough: Vancomycin Date/Time Labs Ordered Labs to be done on [date and time ordered]: 02/19/24 @2300
[2024-02-18] MEDS: Vancomycin HCl 1,500 MG in 0.9% Normal Saline (500mL Bag) 500 ML 250 MG IV (00:33)
[2024-02-18 02:43] VITALS: BP 149/98; PULSE 64; RESP 16; TEMP 36.7; O2SAT 95
[2024-02-18 03:55] LABS: Absolute Lymphocyte Count 1.46 X10^3/uL (0.83-4.51); Absolute Neutrophil Count 3.3 X10^3/uL (2.0-7.7); Basophil# 0.02 X10^3/uL; Basophil% 0.4 % (0-1); Eosinophil# 0.09 X10^3/uL; Eosinophils% 1.6 % (0-5); Hematocrit 35.6 % (37-47); Hemoglobin 11.7 g/dL (12.0-15.0); Lymphocyte # 1.46 X10^3/ul (0.83-4.51); Lymphocyte % 26.3 % (19-41); Mean Corp Hgb Conc 32.9 g/dL (32-36); Mean Corpuscular Volume 88.3 fL (81-99); Mean Platelet Vol. 9.5 fl (6.2-12.0); Monocyte# 0.66 X10^3/uL; Monocyte% 11.9 % (0-10); NRBC Flagged by Analyzer 0 % (0-5); Neutrophil # 3.28 X10^3/uL (2.7-7.7); Neutrophil % 58.9 % (47-70); Platelet Count 175 K/mm3 (150-450); RBC Distribution Width CV 13.8 % (11.6-14.6); RBC Distribution Width SD 44.7 fl (35.1-43.9); Red Blood Count 4.03 M/mm3 (4.2-5.4); White Blood Count 5.6 K/mm3 (4.4-11.0)
[2024-02-18 04:08] LABS: Anion Gap 5 (5-15); BUN 16 mg/dL (7-18); BUN/Creat Ratio 19.8 RATIO (10-20); Calcium,Total 8.3 mg/dL (8.5-10.1); Chloride 110 mmol/L (98-107); Creatinine, Serum 0.81 mg/dL (0.55-1.02); EST Glomerular Filtration Rate 72 mL/min (>60); Est Glom Filt Rate - Afr Amer 87 mL/min (>60); Estimated Creatinine Clearance 39.71 ml/min; Glucose 105 mg/dL (74-106); Potassium 3.7 mmol/L (3.5-5.1); Sodium Level 142 mmol/L (136-145)
[2024-02-18] MEDS: Piperacil/Tazobactam 3.375 GM in 0.9% Normal Saline (50mL MB+) 50 ML IV ×2 (04:20→14:07)
[2024-02-18 05:10] VITALS: BMI 21.4
[2024-02-18 05:11] VITALS: BMI 21.4
[2024-02-18 07:02] VITALS: O2SAT 92
[2024-02-18 10:12] VITALS: BP 131/77; PULSE 70; RESP 16; TEMP 36.4; O2SAT 99
[2024-02-18] MEDS: Lactobacillis Acidophilus 1 CAP PO ×2 (10:16→14:06)
[2024-02-18] MEDS: Ascorbic Acid 500 MG Tablet 1000 MG PO (10:16)
[2024-02-18] MEDS: Zinc Sulfate 50 mg zinc (220 mg) ORAL capsule PO (10:16)
[2024-02-18] MEDS: Ensure Plus High Protein 120 ML LIQUID PO ×2 (10:23→14:06)
[2024-02-18] MEDS: Cholecalciferol (Vit D3) 125 MCG CAPSULE (5,000 UNITS) PO (12:36)
--- NOTE | 2024-02-18 14:06 | PCM.CONS.GEN ---
Assessment & Plan Assessment/Plan (1) Cellulitis of left lower leg: PLAN: Fever resolved. Wound cx with strep x2 and klebs. Will narrow abx to cefazolin. Plan on home with one week course po keflex 500mg tid. Will follow, thank you HPI Consult Data Date of Consult: 02/18/24 HPI Narrative Reason for Consultation: cellulitis HPI Narrative: AYO CONDE, is a 83 F who presented with several days progressive L de santiago redness, swelling, pain with associated fever. Initial wound started when she fell going up stairs about a month ago. No recent abx. Came to ED, admitted on vanc/zosyn, feeling better. Full ROS performed and neg except as noted above. PFSH Home Medications ?Medication ?Instructions ?Recorded ?Last Taken ?Type NK 02/15/24 Unknown History Allergy/AdvReac Type Severity Reaction Status Date / Time No Known Allergies Allergy Verified 02/15/24 19:53 Social History Smoking Status: Never smoker Physical Exam Const alert, oriented x3 and no apparent distress General Appearance: cooperative HEENT normocephalic and head/scalp atraumatic Eyes PERRL and EOMs intact bilaterally Neck supple and No nodes Resp normal air movement and clear to auscultation bilaterally Cardio regular rate and regular rhythm GI soft to palpation, non-tender and non-distended Extremity General Extremity: Negative for edema Skin Skin Narrative: L de santiago with mild redness around scabbed wound Neuro CN's II-XII intact bilaterally Lab / Micro Data Attestation: I reviewed the patient's lab results. 02/18/24 03:16 02/18/24 03:16 Labs: Laboratory Results - last 24 hr 02/17/24 23:00: Vancomycin Trough 4.1 L 02/18/24 03:16: WBC 5.6, RBC 4.03 L, Hgb 11.7 L, Hct 35.6 L, MCV 88.3, MCH 29.0, MCHC 32.9, RDW Std Deviation 44.7 H, RDW Coeff of Yajaira 13.8, Plt Count 175, MPV 9.5, Immature Gran % (Auto) 0.900, Neut % (Auto) 58.9, Lymph % (Auto) 26.3, [place] % (Auto) 11.9 H, Eos % (Auto) 1.6, Baso % (Auto) 0.4, Absolute Neuts (auto) 3.3, Absolute Lymphs (auto) 1.46, Nucleated RBC % 0, Sodium 142, Potassium 3.7, Chloride 110 H, Carbon Dioxide 27.0, Anion Gap 5, BUN 16, Creatinine 0.81, Estim Creat Clear Calc 39.71, Est GFR (MDRD) Af Amer 87, Est GFR (MDRD) Non-Af 72, BUN/Creatinine Ratio 19.8, Glucose 105, Calcium 8.3 L Micro: Microbiology 02/15/24 21:54 Wound - Leg, Left Gram Stain - Final 02/15/24 21:54 Wound - Leg, Left Wound Culture - Preliminary Klebsiella oxytoca Streptococcus agalactiae (B) Streptococcus group C
--- NOTE | 2024-02-18 14:37 | DS.PCM_ITS ---
Providers Date of Admission: 02/15/24 Date of Discharge: 02/18/24 Primary Care Physician: Radha Primary Care Phys Consultations 02/17/24 12:18 Consult: Infectious Disease Routine Consulting Provider: Jalen Raya Reason for Consult: Polymicrobial left lower extremity cellulitis EMERGENT Consult: No MD Notified: Yes Date Notified: 02/18/24 Time Notified: 08:42 Method of Notification: Text Reason For Visit: LLE CELLULITIS AND METABOLIC ENCEPHALOPATHY Diagnosis Discharge Diagnosis (1) Cellulitis of left lower leg: Status: Acute Code(s): L03.116 - Cellulitis of left lower limb Plan # Left lower extremity cellulitis-polymicrobial with Klebsiella and strep Medications at Discharge Home Medications cephalexin 500 mg capsule 500 mg PO Q8H 7 days #21 caps 02/18/24 Hospital Course Summary of Care Provided Minutes Spent on Discharge: 25 Hospital Course: 83-year-old female with no significant past medical history presented [facility] ED 02/15/2024 with fever and increased left lower extremity redness and swelling. She injured her de santiago about 6 weeks ago when she fell trying to walk up her stairs with resultant skin tear and presented with increased swelling, redness, fever. The symptoms began 2 to 3 days prior to admission and she also increased drainage from the wound as well as worsening fatigue. Patient had notable left lower extremity cellulitis with a temperature of 101.8 and was started on broad-spectrum antibiotics. Also had left lower extremity duplex which showed no DVT. Patient grew strep B, strep C, and Klebsiella. ID consulted for antibiotic recommendations and they recommended Keflex for 7 days. Patient overall improving on day of discharge with no new or acute complaints, slowly improving left lower extremity cellulitis. Discharged home in stable condition. Discharge instructions as follows: -You will be sent in 1 week of Keflex 500 mg 3 times daily, this will be sent to [facility] pharmacy -Wash your left lower extremity wound with soap and water daily and then keep clean and dry. If there is any drainage she can cover this with a clean and dry dressing -If you do not have a primary care physician of list of local primary care physicians can be provided for you upon discharge. Please ask for this list prior to discharge -Please call your primary care provider's office upon discharge to schedule a hospital follow up within 1 week. -For any concerning signs or symptoms please call 911 or proceed to the nearest emergency department Physical Exam Narrative General: Alert, oriented, no apparent distress HEENT: Atraumatic, normocephalic Eyes: Anicteric, normal conjunctiva, extraocular movements grossly intact Neck: Supple Respiratory: Clear to auscultation bilaterally, normal respiratory effort Cardiovascular: Regular rate GI: Soft, nontender, nondistended Extremities: No edema Musculoskeletal: Moving all extremities Neuro: No overt focal neurological deficits Skin: Left leg with left lower extremity wound with some surrounding erythema and no drainage, improving Psych: Cooperative Weight / BMI Weight Weight: 51.5 kg Body Mass Index (BMI) 21.4 ABG / Lab / Microbiology Data 02/18/24 03:16 02/18/24 03:16 Laboratory: Laboratory Results - last 24 hr 02/17/24 23:00: Vancomycin Trough 4.1 L 02/18/24 03:16: WBC 5.6, RBC 4.03 L, Hgb 11.7 L, Hct 35.6 L, MCV 88.3, MCH 29.0, MCHC 32.9, RDW Std Deviation 44.7 H, RDW Coeff of Yajaira 13.8, Plt Count 175, MPV 9.5, Immature Gran % (Auto) 0.900, Neut % (Auto) 58.9, Lymph % (Auto) 26.3, [place] % (Auto) 11.9 H, Eos % (Auto) 1.6, Baso % (Auto) 0.4, Absolute Neuts (auto) 3.3, Absolute Lymphs (auto) 1.46, Nucleated RBC % 0, Sodium 142, Potassium 3.7, C hloride 110 H, Carbon Dioxide 27.0, Anion Gap 5, BUN 16, Creatinine 0.81, Estim Creat Clear Calc 39.71, Est GFR (MDRD) Af Amer 87, Est GFR (MDRD) Non-Af 72, BUN/Creatinine Ratio 19.8, Glucose 105, Calcium 8.3 L Microbiology: Microbiology 02/15/24 21:54 Wound - Leg, Left Gram Stain - Final 02/15/24 21:54 Wound - Leg, Left Wound Culture - Preliminary Klebsiella oxytoca Streptococcus agalactiae (B) Streptococcus group C D/C Instructions Discharge Diet: No restrictions Call your doctor if your incision/area has: Sudden Increased Bleeding, Increased Pain/ Swelling, Increased Redness and Foul Smelling Discharge Call your doctor if you observe: Fever of 101 or Higher Cleanse incision/area with: Soap & Water Meaningful Use Info Meaningful Use Meaningful Use Diagnoses (Choose all that apply): None applicable Ischemic Stroke Statin Dosing Therapy Reference: STATIN DOSE THERAPY REFERENCE: * Patients > 75 years receive moderate or high dose statin therapy. * Patients 75 years or YOUNGER should receive HIGH intensity statin dose unless contraindicated. You will be required to document reason for non-treatment if statin daily dose does not meet guidelines. HIGH DOSE STATIN THERAPY DAILY Atorvastatin > than or = to 40 mg Rosuvastatin > than or = to 20 mg Amlodipine + Atorvastatin > than or = to 2.5/40 mg Ezetimibe + Simvastatin 10/80 mg Simvastatin 80mg Discharge Plan Admission Admit Date/Time: 02/15/24 23:21 Primary Reason for Your Visit: Left lower extremity wound Attending Provider: Ro Giles Primary Care Provider: Care Physician,No Primary Consulting Providers: Luis Cuevas; Jalen Raya Instructions Patient Instructions: ED Fall Prevention Additional Instructions / Restrictions: -You will be sent in 1 week of Keflex 500 mg 3 times daily, this will be sent to [facility] pharmacy -Wash your left lower extremity wound with soap and water daily and then keep clean and dry. If there is any drainage she can cover this with a clean and dry dressing -If you do not have a primary care physician of list of local primary care physicians can be provided for you upon discharge. Please ask for this list prior to discharge -Please call your primary care provider's office upon discharge to schedule a hospital follow up within 1 week. -For any concerning signs or symptoms please call 911 or proceed to the nearest emergency department Discharge Orders/Prescriptions Prescriptions: New cephalexin 500 mg capsule 500 mg PO Q8H 7 Days Qty: 21 0RF Referrals / Follow Up: Care Physician,No Primary [Primary Care Provider] - ( -If you do not have a primary care physician of list of local primary care physicians can be provided for you upon discharge. Please ask for this list prior to discharge ) Disposition Disposition (needs filled in before D/C Order can be placed): Home, Self Care Charges/Coding Visit Charges Inpatient E&M: 27655 Disch Hosp
--- NOTE | 2024-02-18 15:31 | PHA.DC_ITS ---
Pharmacy [facility] Pharmacy Service has performed discharge medication reconciliation and counseling for this patient. 1. CEPHALEXIN 500MG PO Q8H X 7 DAYS The patient's discharge medication list was reviewed for discrepancies and discrepancies were resolved. The patient was counseled on the following discharge medications and changes in medications for homegoing were reviewed. The Reason for Use, instructions for use, and potential side effects were reviewed for all new medications. The patient's questions regarding all of their medications were answered. The patient was able to verbally demonstrate an understanding of their discharge medications. Medications at Discharge Home Medications cephalexin 500 mg capsule 500 mg PO Q8H 7 days #21 caps 02/18/24
[2024-02-18 15:38] VITALS: BP 136/64; PULSE 80; RESP 16; TEMP 36.8; O2SAT 97
== END 2024-02-18 16:31 | disposition home or self-care (01) | DRG 602 ==
LOC: ED 23:42 → MS3 02-16 00:01
PROVIDERS: Admitting Provider Internal Medicine; Emergency Provider Emergency Medicine; Visit Provider Internal Medicine
DX: L03.116 Cellulitis of left lower limb (principal); G93.41 Metabolic encephalopathy; B96.1 Klebsiella pneumoniae [K. pneumoniae] as the cause of diseases classified elsewhere
CPT/HCPCS: 36415; 80048; 80053; 80076; 80202; 83605; 83735; 84100; 84443; 85025; 85610; 85730; 87040; 87070; 87077; 87186; 87205; 93971; 94668; 97110; 97162; 97165; 97530; 97802; 99284; J7030; J7040; J7050; A4216